=== PATIENT | female | born 1995 | race Caucasian/White ===

== ENCOUNTER 2016-06-05 18:01 | Emergency (ER) | payer MEDICAID, OTHER ==
[2016-06-05] MEDS ORDERED: oxyCODONE/Acetamin 5/325 MG* TAB PO ONE (20:58)
--- NOTE | 2016-06-05 21:04 | ED ---
Breast Complaint - HPI Summary HPI Summary: 21 F presents with bilateral breast pain for the past month. She states that she has had this pain before when she had cyst in her breast when she was younger that were removed by dr olsen. She states she moved out of the area and did not follow up with dr olsen as she was suppose to as they left some of the cyst in. She states that she has not breast feed in 8 months. She denies any nipple discharge, fever, or spreading erythema. She states the pain occurs around areas that she feels masses in her breast. The pain does not change based on her menstrual period. She has an appointment with dr olsen on Friday but they stated to come her because she was in so much pain. She has taken Tylenol for her pain which she says is not helping. She has been seen by her primary for this and they referred her to dr olsen. She states she is not . - Allergy/Home Medications Allergies/Adverse Reactions: Allergies Allergy/AdvReac Type Severity Reaction Status Date / Time Latex Allergy Severe Hives Verified 06/05/16 18:21 COCONUT Allergy Severe THROAT Uncoded 06/05/16 18:21 CLOSES RAT FECES Allergy Severe Anaphylatic Uncoded 06/05/16 18:21 Shock, HIVES BEE STINGS Allergy Unknown Unknown Uncoded 06/05/16 18:21 Reaction Details PMH/Surg Hx/FS Hx/Imm Hx Endocrine/Hematology History: Denies: Hx Diabetes, Hx Thyroid Disease Cardiovascular History: Denies: Hx Hypertension Respiratory History: Denies: Hx Asthma, Hx Chronic Obstructive Pulmonary Disease (COPD) GI History: Denies: Hx Ulcer History: Denies: Hx Renal Disease Musculoskeletal History: Reports: Other Musculoskeletal History - 12 DEGREES- SCOLIOSIS Sensory History: Denies: Hx Contacts or Glasses, Hx Hearing Aid Opthamlomology History: Denies: Hx Contacts or Glasses Psychiatric History: Reports: Hx Anxiety - ON MED, Hx Depression - ON MED Denies: Hx Eating Disorder - Surgical History Surgery Procedure, Year, and Place: Bilateral " breast lumps" removed by Dr. Olsen Hx Anesthesia Reactions: No Infectious Disease History: No Infectious Disease History: Denies: Hx Hepatitis, Hx Human Immunodeficiency Virus (HIV), Traveled Outside the [place] in Last 30 Days - Family History Known Family History: Positive: Hypertension - Social History Alcohol Use: None Substance Use Type: Reports: None Smoking Status (MU): Never Smoked Tobacco Review of Systems Negative: Fever Positive: Other - breast pain. Negative: Chest Pain Negative: Shortness Of Breath Negative: Rash All Other Systems Reviewed And Are Negative: Yes Physical Exam Triage Information Reviewed: Yes Vital Signs On Initial Exam: Initial Vitals Temp Pulse Resp BP Pulse Ox 97.8 F 87 16 146/88 99 06/05/16 18:13 06/05/16 18:13 06/05/16 18:13 06/05/16 18:13 06/05/16 18:13 Vital Signs Reviewed: Yes Skin: Positive: Warm, Dry, Other - no rash noted, masses noted of left breast at 4 and 7 position, on right breast 5 and 8 position, these area conside with were is tender, no abscess appreciated, no nipple discharge. Negative: Erythema @ Head/Face: Positive: Normal Head/Face Inspection Eyes: Positive: Normal, Conjunctiva Clear ENT: Positive: Normal ENT inspection, Pharynx normal, TMs normal Respiratory/Lung Sounds: Positive: Clear to Auscultation, Breath Sounds Present Cardiovascular: Positive: Normal, RRR Diagnostics - Vital Signs Vital Signs Temp Pulse Resp BP Pulse Ox 06/05/16 18:13 97.8 F 87 16 146/88 99 - Laboratory Lab Statement: Any lab studies that have been ordered have been reviewed, and results considered in the medical decision making process. Breast Pain Course/Dx - Course Course Of Treatment: 21 F presents with breast pain for a month, has appt with dr olsen on friday but pain is not being controlled with tyenlol, no fever, is not currently breast feeding or and no nipple discharge, on exam no area of abscess or cellulitis noted, has multiple masses which feel like cysts in both breast, tenderness coresponds with cyst location, discussed could be fibrocystic disease but as already as appointment with dr olsen in two days can follow up with her for definite answer as do not see any signs of infection , will treat pain, patient agrees with plan - Differential Diagnoses Differential Diagnosis/HQI/PQRI: Breast Abscess, Breast Mass, Fibrocystic Breast Disease, Mastitis - Diagnoses Provider Diagnoses: Breast pain Discharge - Discharge Plan Condition: Good Disposition: HOME Patient Education Materials: Breast Mass (ED) Referrals: Elias Payan NP [Primary Care Provider] - Briseida Olsen MD [Medical Doctor] - Additional Instructions: Keep appointment with dr Olsen Take ibuprofen for pain and use narcotic as needed for break through pain Return to ED if develop fever, spreading redness, or any new or worsening symptoms
[2016-06-05 21:22] VITALS: BP 136/81
== END 2016-06-05 21:21 | disposition home or self-care (01) ==
LOC: ED 18:01
DX: N64.4 Mastodynia (principal)
CPT/HCPCS: 99281; A9270-GY

== ENCOUNTER 2016-08-31 16:54 | Emergency (ER) | payer OTHER ==
--- NOTE | 2016-08-31 18:21 | ED ---
Influenza-Like Illness - HPI Summary HPI Summary: Patient presents with a sore throat for three days and a tick on her right rivera. She denies fever, chills, cough, MAN, or congestion. She has a mild cough. The tick has been in place for 2 hours after walking in the [place]. - History of Current Complaint Chief Complaint: EDAnimalBite Time Seen by Provider: 08/31/16 17:30 Hx Obtained From: Patient Onset/Duration: Gradual Onset Severity: Mild Associated Signs & Symptoms: Sore Throat Related Hx: Possible Flu/Infectious Exposure - Allergy/Home Medications Allergies/Adverse Reactions: Allergies Allergy/AdvReac Type Severity Reaction Status Date / Time Latex Allergy Severe Hives Verified 06/05/16 18:21 COCONUT Allergy Severe THROAT Uncoded 06/05/16 18:21 CLOSES RAT FECES Allergy Severe Anaphylatic Uncoded 06/05/16 18:21 Shock, HIVES BEE STINGS Allergy Unknown Unknown Uncoded 06/05/16 18:21 Reaction Details PMH/Surg Hx/FS Hx/Imm Hx Previously Healthy: Yes Endocrine/Hematology History: Denies: Hx Diabetes, Hx Thyroid Disease Cardiovascular History: Denies: Hx Hypertension Respiratory History: Denies: Hx Asthma, Hx Chronic Obstructive Pulmonary Disease (COPD) GI History: Denies: Hx Ulcer History: Denies: Hx Renal Disease Musculoskeletal History: Reports: Other Musculoskeletal History - 12 DEGREES- SCOLIOSIS Sensory History: Denies: Hx Contacts or Glasses, Hx Hearing Aid Opthamlomology History: Denies: Hx Contacts or Glasses Psychiatric History: Reports: Hx Anxiety - ON MED, Hx Depression - ON MED Denies: Hx Eating Disorder - Surgical History Surgery Procedure, Year, and Place: Bilateral " breast lumps" removed by Dr. Baum Hx Anesthesia Reactions: No Infectious Disease History: No Infectious Disease History: Denies: Hx Hepatitis, Hx Human Immunodeficiency Virus (HIV), Traveled Outside the [place] in Last 30 Days - Family History Known Family History: Positive: Hypertension - Social History Occupation: Employed Full-time Lives: With Family Alcohol Use: None Substance Use Type: Reports: None Smoking Status (MU): Never Smoked Tobacco Review of Systems Positive: Sore Throat Positive: Other - imbedded tick on right anterior rivera All Other Systems Reviewed And Are Negative: Yes Physical Exam Triage Information Reviewed: Yes Vital Signs On Initial Exam: Initial Vitals Temp Pulse Resp BP Pulse Ox 98.0 F 101 16 154/73 100 08/31/16 16:59 08/31/16 16:59 08/31/16 16:59 08/31/16 16:59 08/31/16 16:59 Vital Signs Reviewed: Yes Appearance: Positive: Well-Appearing, No Pain Distress, Obese Skin: Positive: Warm, Skin Color Reflects Adequate Perfusion, Dry, Soft Head/Face: Positive: Normal Head/Face Inspection Eyes: Positive: EOMI, CAESAR, Conjunctiva Clear ENT: Positive: Hearing grossly normal, Pharyngeal erythema, Nasal congestion - mild, TMs normal. Negative: Tonsillar swelling, Tonsillar exudate Neck: Positive: Supple, Nontender, No Lymphadenopathy Respiratory/Lung Sounds: Positive: Breath Sounds Present Cardiovascular: Positive: RRR Musculoskeletal: Negative: Edema Left, Edema Right Neurological: Positive: Sensory/Motor Intact, Alert, Oriented to Person Place, Time, NV Bundle Intact Distally, Normal Gait Psychiatric: Positive: Affect/Mood Appropriate AVPU Assessment: Alert Procedures - Procedure Summary Procedure Summary: The body of the tick was grasped with forceps and twisted until it released it' hold. The tick was intact and no parts appeared to be left in the skin. Diagnostics - Vital Signs Vital Signs Temp Pulse Resp BP Pulse Ox 08/31/16 16:59 98.0 F 101 16 154/73 100 - Laboratory Lab Statement: Any lab studies that have been ordered have been reviewed, and results considered in the medical decision making process. Flu Symptom Course/Dx - Diagnoses Differential Diagnosis/HQI/PQRI: Positive: Bronchitis, Influenza, Upper Respiratory Infection Provider Diagnoses: Tick bite, Viral illness Discharge - Discharge Plan Condition: Stable Disposition: HOME Patient Education Materials: Tick Bite (ED), Viral Syndrome (ED) Referrals: Gigi White MD [Primary Care Provider] - Additional Instructions: Please follow-up with your primary care provider if symptoms persist. Return to the emergency department if symptoms worsen.
[2016-08-31 18:32] VITALS: BP 116/70
== END 2016-08-31 18:31 | disposition home or self-care (01) ==
LOC: ED 16:54
DX: S80.861A Insect bite (nonvenomous), right lower leg, initial encounter (principal); J02.9 Acute pharyngitis, unspecified; W57.XXXA Bitten or stung by nonvenomous insect and other nonvenomous arthropods, initial encounter; Y93.9 Activity, unspecified; Y92.9 Unspecified place or not applicable; Y99.9 Unspecified external cause status
CPT/HCPCS: 87651; 99282

== ENCOUNTER → 2016-12-24 14:09 | Emergency (ER) | payer OTHER ==
--- NOTE | 2016-12-24 15:26 | RAD ---
INDICATION: Left pelvic pain . The patient is not sure if she is . COMPARISON: None TECHNIQUE: Longitudinal and transverse transvaginal scans of the pelvis were obtained. FINDINGS: Uterus: The uterus is normal in size. There are no focal masses. The uterus measures 8.3 x 4.4 x 5.4 cm. Endometrial thickness: The endometrial thickness is measured at 0.6 cm. There is a tiny, empty cystic structure in the mid uterus measuring 0.5 cm. Free fluid: There is no significant free fluid . Ovaries: The ovaries are normal in size. The right ovary measures 4.2 x 3.2 x 3.0 cm. The left ovary measures 4.2 x 2.5 x 3.5 cm. There are multiple tiny peripheral cysts in each ovary which could reflect a cystic ovarian syndrome in the appropriate clinical setting. . Doppler interrogation demonstrates flow to each ovary. Other: None IMPRESSION: TINY CYSTIC ENTITY WITHIN THE UTERUS COULD REPRESENT AN EARLY GESTATIONAL SAC. THIS EXAMINATION WAS PERFORMED AND INTERPRETED WITHOUT THE BENEFIT OF A BETA-HCG VALUE AND THEREFORE THE SIGNIFICANCE OF THIS FINDING IS UNCERTAIN. SUGGEST CORRELATION WITH THE BETA-HCG. SUGGEST FOLLOW-UP ULTRASONOGRAPHY CLINICALLY INDICATED.
[2016-12-24 15:47] LABS: Hematocrit 43 % (35-47); Hemoglobin 14.5 g/dl (12.0-16.0); Mean Corpuscular HGB Conc 34 g/dl (31-36); Mean Corpuscular Hemoglobin 31 pg (27-31); Mean Corpuscular Volume 92 fL (80-97); Mean Platelet Volume 9 um3 (7.4-10.4); Red Blood Count 4.72 10^6/ul (4.0-5.4); Red Cell Distribution Width 14 % (10.5-15); White Blood Count 8.1 10^3/ul (3.5-10.8)
[2016-12-24 16:03] LABS: ALT 26 U/L (7-52); AST 20 U/L (13-39); Albumin 4.2 g/dL (3.2-5.2); Alkaline Phosphatase 51 U/L (34-104); Anion Gap 4 mmol/L (2-11); BUN/Creatinine Ratio 18.8 (8-20); Blood Urea Nitrogen 13 mg/dL (6-24); C Reactive Protein 6.75 mg/L (< 5.00); CO2 Carbon Dioxide 29 mmol/L (22-32); Calcium 9.3 mg/dL (8.6-10.3); Chloride 104 mmol/L (101-111); EGFR African American 136.8 (>60); EGFR Non-African American 106.4 (>60); Globulin 3.2 g/dL (2-4); Glucose 81 mg/dL (70-100); Lipase 26 U/L (11.0-82.0); Potassium 3.7 mmol/L (3.5-5.0); Sodium 137 mmol/L (133-145); Total Protein 7.4 g/dL (6.4-8.9)
[2016-12-24 17:17] LABS: Urine Bilirubin Negative (Negative); Urine Glucose Negative (Negative); Urine Nitrite Negative (Negative)
[2016-12-24 19:35] VITALS: BP 120/68
--- NOTE | 2016-12-25 09:01 | ED ---
Kacey Stevenson Alfonso, scribed for Gigi Schneider MD on 12/24/16 at 1520 . Abdominal Pain/Female - HPI Summary HPI Summary: This patient is a 21 year old F presenting to [facility] with a chief complaint of LLQ abdominal pain since one week ago. The CC is described as a tearing. The patient rates the pain 5/10 in severity. Symptoms aggravated by standing and alleviated by lying down. Patient reports nausea. Patient denies vomiting, diarrhea, and constipation. She is sexually active. She has been before. LNMP two months ago. She reports marijuana use. Denies any PMHx. - History of Current Complaint Chief Complaint: EDAbdPain Stated Complaint: LT SIDE ABD PAIN Time Seen by Provider: 12/24/16 14:17 Hx Obtained From: Patient Onset/Duration: Sudden Onset, Lasting Weeks - 1, Still Present Timing: Constant Severity Initially: Moderate Severity Currently: Moderate Pain Intensity: 5 Pain Scale Used: 0-10 Numeric Location: Discrete At: LLQ Character: Tearing Aggravating Factor(s): Other: - Standing Alleviating Factor(s): Other: - Lying down Associated Signs and Symptoms: Positive: Other: - Patient reports nausea. Patient denies vomiting, diarrhea, and constipation. Allergies/Adverse Reactions: Allergies Allergy/AdvReac Type Severity Reaction Status Date / Time Latex Allergy Severe Hives Verified 06/05/16 18:21 COCONUT Allergy Severe THROAT Uncoded 06/05/16 18:21 CLOSES RAT FECES Allergy Severe Anaphylatic Uncoded 06/05/16 18:21 Shock, HIVES BEE STINGS Allergy Unknown Unknown Uncoded 06/05/16 18:21 Reaction Details PMH/Surg Hx/FS Hx/Imm Hx Endocrine/Hematology History: Denies: Hx Diabetes, Hx Thyroid Disease Cardiovascular History: Denies: Hx Hypertension Respiratory History: Denies: Hx Asthma, Hx Chronic Obstructive Pulmonary Disease (COPD) GI History: Denies: Hx Ulcer History: Denies: Hx Renal Disease Musculoskeletal History: Reports: Other Musculoskeletal History - 12 DEGREES- SCOLIOSIS Sensory History: Denies: Hx Contacts or Glasses, Hx Hearing Aid Opthamlomology History: Denies: Hx Contacts or Glasses Psychiatric History: Reports: Hx Anxiety - ON MED, Hx Depression - ON MED Denies: Hx Eating Disorder - Surgical History Surgery Procedure, Year, and Place: Bilateral " breast lumps" removed by Dr. Bautista Harding Anesthesia Reactions: No Infectious Disease History: Denies: Hx Hepatitis, Hx Human Immunodeficiency Virus (HIV), Traveled Outside the [place] in Last 30 Days - Family History Known Family History: Positive: Hypertension - Social History Alcohol Use: None Substance Use Type: Reports: None Smoking Status (MU): Never Smoked Tobacco Review of Systems Negative: Fever Positive: Abdominal Pain - LLQ, Nausea, Other - Negative constipation. Negative : Vomiting, Diarrhea All Other Systems Reviewed And Are Negative: Yes Physical Exam - Summary Physical Exam Summary: VITAL SIGNS: Reviewed. GENERAL: Patient is a well-developed and nourished female who is lying comfortable in the stretcher. Patient is not in any acute respiratory distress. HEAD AND FACE: Normocephalic and atraumatic. EYES: PERRLA, EOMI x 2, No injected conjunctiva. EARS: Hearing grossly intact. Ear canals and tympanic membranes are WNL. MOUTH: Oropharynx within normal limits. NECK: Supple, trachea is midline, no adenopathy, no JVD. CHEST: Symmetric, no tenderness at palpation LUNGS: Clear to auscultation bilaterally. No wheezing or crackles. CVS: RRR, S1 and S2 present, no murmurs or gallops appreciated. ABDOMEN: Left pelvic tenderness. Soft. No signs of distention. Positive bowel sounds. No rebound no guarding, and no masses palpated. No abdominal bruit or pulsations. EXTREMITIES: FROM in all major joints, no edema, no cyanosis or clubbing. NEURO: Alert and oriented x 3. No acute neurological deficits. Speech is normal. SKIN: Dry and warm Triage Information Reviewed: Yes Vital Signs On Initial Exam: Initial Vitals Temp Pulse Resp BP Pulse Ox 97.6 F 84 18 147/82 98 12/24/16 14:12 12/24/16 14:12 12/24/16 14:12 12/24/16 14:12 12/24/16 14:12 Vital Signs Reviewed: Yes Diagnostics - Vital Signs Vital Signs Temp Pulse Resp BP Pulse Ox 12/24/16 14:12 97.6 F 84 18 147/82 98 - Laboratory Lab Results: Lab Results 12/24/16 12/24/16 12/24/16 Range/Units 15:40 15:40 17:05 WBC 8.1 (3.5-10.8) 10^3/ul RBC 4.72 (4.0-5.4) 10^6/ul Hgb 14.5 (12.0-16.0) g/dl Hct 43 (35-47) % MCV 92 (80-97) fL MCH 31 (27-31) pg MCHC 34 (31-36) g/dl RDW 14 (10.5-15) % Plt Count 234 (150-450) 10^3/ul MPV 9 (7.4-10.4) um3 Neut % (Auto) 50.0 (38-83) % Lymph % (Auto) 36.1 (25-47) % [place] % (Auto) 10.6 H (1-9) % Eos % (Auto) 2.3 (0-6) % Baso % (Auto) 1.0 (0-2) % Absolute Neuts (auto) 4.0 (1.5-7.7) 10^3/ul Absolute Lymphs (auto) 2.9 (1.0-4.8) 10^3/ul Absolute Monos (auto) 0.9 H (0-0.8) 10^3/ul Absolute Eos (auto) 0.2 (0-0.6) 10^3/ul Absolute Basos (auto) 0.1 (0-0.2) 10^3/ul Absolute Nucleated RBC 0 10^3/ul Nucleated RBC % 0 Sodium 137 (133-145) mmol/L Potassium 3.7 (3.5-5.0) mmol/L Chloride 104 (101-111) mmol/L Carbon Dioxide 29 (22-32) mmol/L Anion Gap 4 (2-11) mmol/L BUN 13 (6-24) mg/dL Creatinine 0.69 (0.51-0.95) mg/dL Est GFR ( Amer) 136.8 (>60) Est GFR (Non-Af Amer) 106.4 (>60) BUN/Creatinine Ratio 18.8 (8-20) Glucose 81 (70-100) mg/dL Calcium 9.3 (8.6-10.3) mg/dL Total Bilirubin 0.30 (0.2-1.0) mg/dL AST 20 (13-39) U/L ALT 26 (7-52) U/L Alkaline Phosphatase 51 (34-104) U/L C-Reactive Protein 6.75 H (< 5.00) mg/L Total Protein 7.4 (6.4-8.9) g/dL Albumin 4.2 (3.2-5.2) g/dL Globulin 3.2 (2-4) g/dL Albumin/Globulin Ratio 1.3 (1-3) Lipase 26 (11.0-82.0) U/L Beta HCG, Quant < 0.60 mIU/mL Urine Color Yellow Urine Appearance Cloudy Urine pH 7.0 (5-9) Ur Specific [place] 1.021 (1.010-1.030) Urine Protein Negative (Negative) Urine Ketones Negative (Negative) Urine Blood Negative (Negative) Urine Nitrate Negative (Negative) Urine Bilirubin Negative (Negative) Urine Urobilinogen Negative (Negative) Ur Leukocyte Esterase Negative (Negative) Urine Glucose Negative (Negative) Result Diagrams: 12/24/16 15:40 12/24/16 15:40 Lab Statement: Any lab studies that have been ordered have been reviewed, and results considered in the medical decision making process. - Additional Comments Diagnostic Additional Comments: US transvaginal reveals, per radiologist, TINY CYSTIC ENTITY WITHIN THE UTERUS COULD REPRESENT AN EARLY GESTATIONAL SAC. THIS EXAMINATION WAS PERFORMED AND INTERPRETED WITHOUT THE BENEFIT OF A BETA-HCG VALUE AND THEREFORE THE SIGNIFICANCE OF THIS FINDING IS UNCERTAIN. SUGGEST CORRELATION WITH THE BETA- HCG. SUGGEST FOLLOW-UP ULTRASONOGRAPHY CLINICALLY INDICATED. Abdominal Pain Fem Course/Dx - Course Course Of Treatment: This patient is a 21 year old F presenting to [facility] with a chief complaint of LLQ abdominal pain since one week ago. The CC is described as a tearing. The patient rates the pain 5/10 in severity. Symptoms aggravated by standing and alleviated by lying down. Patient reports nausea. Patient denies vomiting, diarrhea, and constipation. She is sexually active. She has been before. LNMP two months ago. She reports marijuana use. Denies any PMHx. Test results without any significant abnormalities. Urinalysis negative for UTI. US transvaginal reveals TINY CYSTIC ENTITY WITHIN THE UTERUS COULD REPRESENT AN EARLY GESTATIONAL SAC. THIS EXAMINATION WAS PERFORMED AND INTERPRETED WITHOUT THE BENEFIT OF A BETA-HCG VALUE AND THEREFORE THE SIGNIFICANCE OF THIS FINDING IS UNCERTAIN. SUGGEST CORRELATION WITH THE BETA -HCG. SUGGEST FOLLOW-UP ULTRASONOGRAPHY CLINICALLY INDICATED. Beta-HCG is negative; therefore the patient Is not . The symptoms have resolved in the ED course. The patient is asymptomatic. Therefore, the patient will be discharged home with PCP follow up. Patient is hemodynamically stable and alert and oriented to person, place, and time. I discussed all the findings and test results with the patient. Patient was instructed to return to the emergency room immediately if any of the symptoms return or worsens. They were explained the possibility of an early abdominal pathology which was not detected at this time despite the physical exam and testing. They understand and agree. Abdominal exam before discharge: Soft, NT. No signs of distention. BS present. No rebound no guarding, and no masses palpated. Patient is alert and oriented and hemodynamically stable. Patient is to follow up with primary care physician in the next 2 to 3 days. Patient agree and understands. - Diagnoses Differential Diagnosis: Positive: Constipation, Ovarian Cyst, Provider Diagnoses: Abdominal pain Discharge - Discharge Plan Condition: Stable Disposition: HOME Patient Education Materials: Abdominal Pain (ED) Referrals: Gigi White MD [Primary Care Provider] - 3 Days The documentation as recorded by the Kacey vergara Alfonso accurately reflects the service I personally performed and the decisions made by , Gigi Schneider MD.
== END | disposition home or self-care (01) ==
LOC: ED 14:09
DX: R10.32 Left lower quadrant pain (principal); R11.0 Nausea
CPT/HCPCS: 36415; 76830; 80053; 81003; 83690; 84702; 85025; 86140; 99283

== ENCOUNTER 2017-01-22 08:24 | Emergency (ER) | payer OTHER ==
[2017-01-22 08:43] VITALS: BP 147/81
--- NOTE | 2017-01-22 09:42 | UC ---
Respiratory Complaint HPI - HPI Summary HPI Summary: 21 yo female with cough and fever x 5 days occasionally productive right sided thoracic back pain with deep inspiration no n/v/d yesterday was bent over and felt faint may have passed out for a second did not hit ground - History of Current Complaint Chief Complaint: UCRespiratory Stated Complaint: RESP ISSUE Time Seen by Provider: 01/22/17 09:12 Hx Obtained From: Patient Hx Last Menstrual Period: 2 months ago Onset/Duration: Gradual Onset, Lasting Days Timing: Constant Severity Initially: Mild Severity Currently: Moderate Pain Intensity: 4 - 8 with deep breath Pain Scale Used: 0-10 Numeric Character: Cough: Productive Aggravating Factors: Nothing Alleviating Factors: Nothing Associated Signs And Symptoms: Positive: Fever - Allergies/Home Medications Allergies/Adverse Reactions: Allergies Allergy/AdvReac Type Severity Reaction Status Date / Time Latex Allergy Severe Hives Verified 06/05/16 18:21 COCONUT Allergy Severe THROAT Uncoded 06/05/16 18:21 CLOSES RAT FECES Allergy Severe Anaphylatic Uncoded 06/05/16 18:21 Shock, HIVES BEE STINGS Allergy Unknown Unknown Uncoded 06/05/16 18:21 Reaction Details Home Medications: Home Medications Loratadine [Claritin 10 MG CAP] 10 mg PO DAILY 01/22/17 [History Confirmed 01/22] PMH/Surg Hx/FS Hx/Imm Hx Previously Healthy: Yes - Surgical History Surgical History: Yes Surgery Procedure, Year, and Place: Bilateral " breast lumps" removed by Dr. Baum - Family History Known Family History: Positive: Hypertension - Social History Alcohol Use: None Substance Use Type: None Smoking Status (MU): Never Smoked Tobacco - Immunization History Most Recent Influenza Vaccination: 03/21/2015 Most Recent Tetanus Shot: 05/09/2015 Most Recent Pneumonia Vaccination: none Review of Systems Constitutional: Fever, Chills, Fatigue Skin: Negative Eyes: Negative ENT: Negative Respiratory: Cough Cardiovascular: Negative Gastrointestinal: Negative Genitourinary: Negative Motor: Negative Neurovascular: Negative Musculoskeletal: Negative Neurological: Negative Psychological: Negative All Other Systems Reviewed And Are Negative: Yes Physical Exam Triage Information Reviewed: Yes Appearance: Well-Appearing, No Pain Distress, Well-Nourished Vital Signs: Initial Vital Signs Temp 97.5 F 01/22/17 08:38 Pulse 94 01/22/17 08:38 Resp 18 01/22/17 08:38 BP 147/81 01/22/17 08:38 Pulse Ox 99 01/22/17 08:38 Vital Signs Reviewed: Yes Eyes: Positive: Conjunctiva Clear ENT: Positive: TMs normal. Negative: Hearing grossly normal, Pharyngeal erythema, Nasal congestion, Nasal drainage, Tonsillar swelling, Tonsillar exudate, Trismus, Muffled/hoarse voice Neck: Positive: Supple, Nontender, No Lymphadenopathy Respiratory: Positive: No respiratory distress, No accessory muscle use, Crackles - right base, Wheezing - R>L with forced expiration Cardiovascular: Positive: RRR, No Murmur Musculoskeletal: Positive: ROM Intact, No Edema Neurological Exam: Normal Psychological Exam: Normal Skin Exam: Normal UC Diagnostic Evaluation - Laboratory O2 Sat by Pulse Oximetry: 99 - normal/not hypoxic - Radiology Xray Interpretation: No Acute Changes Radiology Interpretation Completed By: Radiologist Respiratory Course/Dx - Differential Dx/Diagnosis Provider Diagnoses: acute bronchitis with bronchospasm Discharge - Discharge Plan Condition: Stable Disposition: HOME Prescriptions: Amoxicillin PO (*) [Amoxicillin 400 MG/5 ML SUSP*] 800 mg PO BID #200 bottle predniSONE TAB* [Deltasone TAB*] 50 mg PO DAILY #5 tab Patient Education Materials: Acute Bronchitis (ED) Forms: *Work Release Referrals: Gigi White MD [Primary Care Provider] - 6 Days (if not completely better) Additional Instructions: use inhaler as directed rest fluids recheck for worsening symptoms
--- NOTE | 2017-01-22 09:58 | RAD ---
Indication: Fever, chills and cough. 2 views of the chest including dual energy PA views demonstrate no mediastinal shift. Heart is of normal size and configuration. Lung coles demonstrate no pleural fluid, pneumonia or pneumothorax. IMPRESSION: No active cardiopulmonary disease is noted.
[2017-01-22] MEDS ORDERED: Albuterol HFA INHALER* 8 gm MDI INH ONE (10:06)
--- NOTE | 2017-01-23 11:21 | UC ---
Progress - Progress Note Progress Note: Patient may return to work not today but can go back tomorrow, January 23, 2017. Chay Enrique MD
== END 2017-01-22 10:37 | disposition home or self-care (01) ==
LOC: UCEAST 08:24
DX: J20.9 Acute bronchitis, unspecified (principal)
CPT/HCPCS: 71020; 99212; A9270-GY; G0463

== ENCOUNTER 2017-01-26 15:18 | Emergency (ER) | payer OTHER ==
[2017-01-26 15:27] VITALS: BP 140/84
--- NOTE | 2017-01-26 17:10 | UC ---
Respiratory Complaint HPI - HPI Summary HPI Summary: SEEN HERE 01/22/17 AND DX WITH ACUTE BRONCHITIS. TX WITH AMOX, PREDNISONE AND GIVEN SAMPLE SIZED ALBUTEROL INHALER. STATES SHE IS NOT FEELING IMPROVED. LAST DOSE OF STEROIDS WAS TODAY AND INHALER IS USED UP. NO FEVER. C/O PERSISTEJT COUGH, ST AND CONGESTION. NO WHEEZE OR FEVER. - History of Current Complaint Chief Complaint: UCRespiratory Stated Complaint: COUGH,COLD Time Seen by Provider: 01/26/17 16:28 Hx Obtained From: Patient Hx Last Menstrual Period: 11/02 Onset/Duration: Gradual Onset, Lasting Days, Still Present Timing: Constant Severity Initially: Moderate Severity Currently: Moderate Pain Intensity: 8 Pain Scale Used: 0-10 Numeric Character: Cough: Nonproductive Aggravating Factors: Nothing Alleviating Factors: Bronchodilator Associated Signs And Symptoms: Positive: URI, Nasal Congestion. Negative: Dyspnea, Fever, Chills, Wheezing, Hemoptysis, Dizziness, Hoarseness - Allergies/Home Medications Allergies/Adverse Reactions: Allergies Allergy/AdvReac Type Severity Reaction Status Date / Time Latex Allergy Severe Hives Verified 06/05/16 18:21 COCONUT Allergy Severe THROAT Uncoded 06/05/16 18:21 CLOSES RAT FECES Allergy Severe Anaphylatic Uncoded 06/05/16 18:21 Shock, HIVES BEE STINGS Allergy Unknown Unknown Uncoded 06/05/16 18:21 Reaction Details Home Medications: Home Medications Albuterol HFA INHALER* [Ventolin HFA Inhaler*] 2 puff INH Q2H PRN 01/26/17 [ History Confirmed 01/26/17] PMH/Surg Hx/FS Hx/Imm Hx Previously Healthy: Yes - Surgical History Surgical History: Yes Surgery Procedure, Year, and Place: Bilateral " breast lumps" removed by Dr. Baum - Family History Known Family History: Positive: Hypertension - Social History Alcohol Use: None Substance Use Type: None Smoking Status (MU): Never Smoked Tobacco - Immunization History Most Recent Influenza Vaccination: 03/21/2015 Most Recent Tetanus Shot: 05/09/2015 Most Recent Pneumonia Vaccination: none Review of Systems Constitutional: Negative ENT: Sore Throat, Nasal Discharge Respiratory: Cough Cardiovascular: Negative Gastrointestinal: Negative All Other Systems Reviewed And Are Negative: Yes Physical Exam Triage Information Reviewed: Yes Appearance: Well-Appearing, No Pain Distress, Well-Nourished Vital Signs: Initial Vital Signs Temp 98.1 F 01/26/17 15:23 Pulse 102 01/26/17 15:23 Resp 18 01/26/17 15:23 BP 140/84 01/26/17 15:23 Pulse Ox 99 01/26/17 15:23 Vital Signs Reviewed: Yes Eyes: Positive: Conjunctiva Clear ENT: Positive: Hearing grossly normal, Pharynx normal, TMs normal Neck: Positive: Supple, Nontender, No Lymphadenopathy Respiratory Exam: Normal Cardiovascular Exam: Normal Abdomen Description: Positive: Soft Musculoskeletal: Positive: No Edema Neurological: Positive: Alert Psychological: Positive: Age Appropriate Behavior Skin: Negative: rashes UC Diagnostic Evaluation - Laboratory O2 Sat by Pulse Oximetry: 99 Diagnostic Studies Comment: RAPID STREP NEGATIVE Respiratory Course/Dx - Differential Dx/Diagnosis Provider Diagnoses: ACUTE BRONCHITIS Discharge - Discharge Plan Condition: Stable Disposition: HOME Prescriptions: Albuterol HFA INHALER* [Ventolin HFA Inhaler*] 2 puff INH Q4H PRN #1 mdi PRN Reason: Shortness Of Breath Patient Education Materials: Acute Bronchitis (ED) Referrals: Gigi White MD [Primary Care Provider] - If Needed Additional Instructions: RAPID STREP NEGATIVE. CONTINUE YOUR AMOXICILLIN TO COMPLETE COURSE. REST, HYDRATE, OTC MEDS NEEDED. YOU SHOULD IMPROVE OVER THE NEXT 1-2 WEEKS. FOLLOW- UP PCP IF NOT IMPROVING EXPECTED.
== END 2017-01-26 17:10 | disposition home or self-care (01) ==
LOC: UCEAST 15:18
DX: J20.9 Acute bronchitis, unspecified (principal)
CPT/HCPCS: 87651; 99212; G0463

== ENCOUNTER 2017-02-16 10:30 | Emergency (ER) | payer OTHER ==
[2017-02-16 10:46] VITALS: BP 121/84
== END 2017-02-16 12:30 | disposition left against medical advice (07) ==
LOC: ED 10:30
DX: N61.1 Abscess of the breast and nipple (principal); Z53.21 Procedure and treatment not carried out due to patient leaving prior to being seen by health care provider
CPT/HCPCS: 99282

== ENCOUNTER 2017-04-28 13:10 | Emergency (ER) | payer OTHER ==
[2017-04-28] MEDS ORDERED: NS 0.9% 1000 ML* 1,000 ML IV ONE (15:46)
[2017-04-28 16:21] LABS: Hematocrit 40 % (35-47); Hemoglobin 13.6 g/dl (12.0-16.0); Mean Corpuscular HGB Conc 34 g/dl (31-36); Mean Corpuscular Hemoglobin 31 pg (27-31); Mean Corpuscular Volume 91 fL (80-97); Mean Platelet Volume 10 um3 (7.4-10.4); Red Cell Distribution Width 14 % (10.5-15); White Blood Count 8.3 10^3/ul (3.5-10.8)
[2017-04-28 16:40] LABS: Urine Bacteria Absent (Absent); Urine Bilirubin Negative (Negative); Urine Glucose Negative (Negative); Urine Nitrite Negative (Negative)
[2017-04-28 16:42] LABS: BUN/Creatinine Ratio 12.3 (8-20); C Reactive Protein 12.05 mg/L (< 5.00); Calcium 9.2 mg/dL (8.6-10.3); EGFR African American 127.1 (>60); EGFR Non-African American 98.8 (>60); Potassium 3.5 mmol/L (3.5-5.0); Total Bilirubin 0.2 mg/dL (0.2-1.0)
--- NOTE | 2017-04-28 18:02 | RAD ---
HISTORY: Cramping, spotting COMPARISONS: The relevant TECHNIQUE: Multiple transverse and longitudinal ultrasound images were obtained of the pelvis using grayscale, color Doppler, spectral Doppler imaging and M-Mode Doppler imaging using the endovaginal transducer. FINDINGS: UTERUS: The uterus is normal in shape, size, contour, and echotexture. GESTATION: There is a single live intrauterine gestation. The crown-rump length measures 1.5 cm for a gestational age of 7 weeks, 6 days. The ART is December 09, 2017. cardiac motion is detected at a rate of 155 beats per minute. Gross movement is identified. anatomy cannot be assessed secondary to early dates. The amniotic fluid is qualitatively normal. There are no retroplacental fluid collections. CUL-DE-SAC: There is no free fluid within the cul-de-sac. RIGHT OVARY: The right ovary measures 4.9 x 2.1 x 3.7 cm. Normal arterial and venous waveforms are identifiable within the ovary on spectral Doppler imaging. LEFT OVARY: The left ovary measures 3.6 x 2.6 x 2.8 cm. Normal arterial and venous waveforms are identifiable within the ovary on spectral Doppler imaging. The corpus luteum cyst is noted measuring 2.1 cm. BLADDER: The bladder is not well visualized. IMPRESSION: SINGLE LIVE INTRAUTERINE GESTATION AT 7 WEEKS AND 6 DAYS BY CROWN-RUMP LENGTH. NO RETROPLACENTAL HEMORRHAGE.
[2017-04-28] MEDS ORDERED: Acetaminophen TAB* 325 MG PO ONE (18:10)
[2017-04-28 18:51] VITALS: BP 124/68
--- NOTE | 2017-04-28 21:12 | ED ---
Kacey Stevenson Alfonso, scribed for Jasmyn Brown MD on 04/28/17 at 1644 . - HPI Summary HPI Summary: This patient is a 22 year old F who had home test positive yesterday , presents to [facility] accompanied by male partner with a chief complaint of pink vaginal bleeding with wiping from 1200 to 1245 today. She states the bleeding is different in character from her previous miscarriage. She is A1. The miscarriage was 8 weeks into gestation and was 6 months to 1 year ago. She believes she is approximately 4 weeks currently, and had her first positive test yesterday. She was not in February per US and labs when she was tested. LMP 11/07/16. The patient rates the pain 5/10 in severity currently, and 8/10 at its worse. Bleeding alleviated by spontaneous resolution. Patient reports LLQ abdominal cramping (radiates to left lower back) , and N/V. Pt states she is blood type A+. - History of Current Complaint Chief Complaint: EDOBProblems Stated Complaint: CRAPMING/ Time Seen by Provider: 04/28/17 16:28 Hx Obtained From: Patient Chief Complaint: Concern for Embryonic Dem, Pain, Vaginal Bleeding Onset/Duration: Started Hours Ago, Resolved Timing: Lasting Minutes - 1106-8125 Severity: Moderate Current Severity: Moderate Pain Intensity: 8 - /10 Location of Pain: Diffuse - lower Character: Cramping Aggravating Factors: Nothing Alleviating Factors: Other: - spontaneous resolution Associated Signs and Symptoms: Positive: Nausea, Vaginal Bleeding or Discharge, Vomiting, Other: - LLQ abdominal cramping (radiates to left lower back), and N/ V. - Assessment Hx Now: Yes Hx : 3 Hx Para: 1 SAB: 1 IEA: 0 History of Ectopic : No Vaginal Bleeding Amount: Scant Hx Last Menstrual Period: 11/07/16 Hx Hysterectomy: No - Additional Pertinent History Maternal Blood Type and Rh: A Positive - Allergies/Home Medications Allergies/Adverse Reactions: Allergies Allergy/AdvReac Type Severity Reaction Status Date / Time Latex Allergy Severe Hives Verified 06/05/16 18:21 COCONUT Allergy Severe THROAT Uncoded 06/05/16 18:21 CLOSES RAT FECES Allergy Severe Anaphylatic Uncoded 06/05/16 18:21 Shock, HIVES BEE STINGS Allergy Unknown Unknown Uncoded 06/05/16 18:21 Reaction Details PMH/Surg Hx/FS Hx/Imm Hx Previously Healthy: Yes Endocrine/Hematology History: Denies: Hx Diabetes, Hx Thyroid Disease Cardiovascular History: Denies: Hx Hypertension Respiratory History: Denies: Hx Asthma, Hx Chronic Obstructive Pulmonary Disease (COPD) GI History: Denies: Hx Ulcer History: Denies: Hx Renal Disease Musculoskeletal History: Reports: Other Musculoskeletal History - 12 DEGREES- SCOLIOSIS Sensory History: Denies: Hx Contacts or Glasses, Hx Hearing Aid Opthamlomology History: Denies: Hx Contacts or Glasses EENT History: Denies: Hx Deafness Psychiatric History: Reports: Hx Anxiety - ON MED, Hx Depression - ON MED Denies: Hx Eating Disorder - Surgical History Surgery Procedure, Year, and Place: Bilateral " breast lumps" removed by Dr. Baum Hx Anesthesia Reactions: No Infectious Disease History: No Infectious Disease History: Denies: Hx Hepatitis, Hx Human Immunodeficiency Virus (HIV), History Other Infectious Disease, Traveled Outside the [place] in Last 30 Days - Family History Known Family History: Positive: Hypertension, Other - Breast, throat, and thyroid cancers. - Social History Occupation: Employed Full-time - [employer] Lives: With Family Alcohol Use: None Hx Substance Use: No Substance Use Type: Reports: None Hx Tobacco Use: No Smoking Status (MU): Never Smoked Tobacco Review of Systems Negative: Fever Cardiovascular: Negative Respiratory: Negative Positive: Vomiting, Nausea Positive: other - vaginal bleeding, LLQ abdominal cramping Neurological: Negative Psychological: Normal All Other Systems Reviewed And Are Negative: Yes Physical Exam - Physical Exam Triage Information Reviewed: Yes Vital Signs Reviewed: Yes Appearance: Positive: Well-Appearing, Pain Distress, Obese Skin: Positive: Warm, Skin Color Reflects Adequate Perfusion Head/Face: Positive: Normal Head/Face Inspection Eyes: Positive: EOMI, Conjunctiva Clear ENT: Positive: Normal ENT inspection Neck: Positive: Supple Respiratory/Lung Sounds: Positive: Clear to Auscultation, Breath Sounds Present , Other - No respiratory distress Cardiovascular: Positive: RRR, Pulses are Symmetrical in both Upper and Lower Extremities, Other - Brisk capillary refill. Negative: Murmur Abdomen Description: Positive: Soft, Other: - LLQ and suprapubic tenderness. No rebound.. Negative: Guarding Bowel Sounds: Positive: Present Neurological: Positive: Alert, Oriented to Person Place, Time, Facial Symmetry, Speech Normal, Other - muscle tone normal, facial symmetry, speech normal, sensory/motor intact Psychiatric: Positive: Normal - [place] Coma Scale Eye: 4 - Spontaneous Motor: 6 - Obeys Commands Verbal: 5 - Oriented Coma Scale Total: 15 - Vaginal Assessment Examined By: Jasmyn Brown - no blood in vaginal vault Dilation (cm): 0 Dilation Description: Thick and Closed Cervical Effacement: none Diagnostics - Vital Signs Vital Signs Temp Pulse Resp BP Pulse Ox 04/28/17 13:26 97.9 F 79 18 139/78 98 - Laboratory Lab Results: Lab Results 04/28/17 04/28/17 04/28/17 Range/Units 15:00 15:56 15:56 WBC 8.3 (3.5-10.8) 10^3/ul RBC 4.40 (4.0-5.4) 10^6/ul Hgb 13.6 (12.0-16.0) g/dl Hct 40 (35-47) % MCV 91 (80-97) fL MCH 31 (27-31) pg MCHC 34 (31-36) g/dl RDW 14 (10.5-15) % Plt Count 239 (150-450) 10^3/ul MPV 10 (7.4-10.4) um3 Neut % (Auto) 68.7 (38-83) % Lymph % (Auto) 19.9 L (25-47) % [place] % (Auto) 9.2 H (1-9) % Eos % (Auto) 1.9 (0-6) % Baso % (Auto) 0.3 (0-2) % Absolute Neuts (auto) 5.7 (1.5-7.7) 10^3/ul Absolute Lymphs (auto) 1.7 (1.0-4.8) 10^3/ul Absolute Monos (auto) 0.8 (0-0.8) 10^3/ul Absolute Eos (auto) 0.2 (0-0.6) 10^3/ul Absolute Basos (auto) 0 (0-0.2) 10^3/ul Absolute Nucleated RBC 0.01 10^3/ul Nucleated RBC % 0.1 INR (Anticoag Therapy) 1.01 (0.77-1.02) APTT 27.7 (26.0-36.3) seconds Lactic Acid (0.5-2.0) mmol/L Urine Color Yellow Urine Appearance Cloudy Urine pH 5.0 (5-9) Ur Specific [place] 1.027 (1.010-1.030) Urine Protein Negative (Negative) Urine Ketones Negative (Negative) Urine Blood Negative (Negative) Urine Nitrate Negative (Negative) Urine Bilirubin Negative (Negative) Urine Urobilinogen Negative (Negative) Ur Leukocyte Esterase Trace H (Negative) Urine WBC (Auto) 1+(6-10/hpf) H (Absent) Urine RBC (Auto) Trace(0-2/hpf) (Absent) Ur Squamous Epith Cells Present H (Absent) Calcium Oxalate Crystal Present H (Absent) Urine Bacteria Absent (Absent) Urine Glucose Negative (Negative) Blood Type Antibody Screen 04/28/17 04/28/17 Range/Units 15:56 15:56 WBC (3.5-10.8) 10^3/ul RBC (4.0-5.4) 10^6/ul Hgb (12.0-16.0) g/dl Hct (35-47) % MCV (80-97) fL MCH (27-31) pg MCHC (31-36) g/dl RDW (10.5-15) % Plt Count (150-450) 10^3/ul MPV (7.4-10.4) um3 Neut % (Auto) (38-83) % Lymph % (Auto) (25-47) % Preston % (Auto) (1-9) % Eos % (Auto) (0-6) % Baso % (Auto) (0-2) % Absolute Neuts (auto) (1.5-7.7) 10^3/ul Absolute Lymphs (auto) (1.0-4.8) 10^3/ul Absolute Monos (auto) (0-0.8) 10^3/ul Absolute Eos (auto) (0-0.6) 10^3/ul Absolute Basos (auto) (0-0.2) 10^3/ul Absolute Nucleated RBC 10^3/ul Nucleated RBC % INR (Anticoag Therapy) (0.77-1.02) APTT (26.0-36.3) seconds Lactic Acid 0.6 (0.5-2.0) mmol/L Urine Color Urine Appearance Urine pH (5-9) Ur Specific [place] (1.010-1.030) Urine Protein (Negative) Urine Ketones (Negative) Urine Blood (Negative) Urine Nitrate (Negative) Urine Bilirubin (Negative) Urine Urobilinogen (Negative) Ur Leukocyte Esterase (Negative) Urine WBC (Auto) (Absent) Urine RBC (Auto) (Absent) Ur Squamous Epith Cells (Absent) Calcium Oxalate Crystal (Absent) Urine Bacteria (Absent) Urine Glucose (Negative) Blood Type A Positive Antibody Screen Pending Result Diagrams: 04/28/17 15:56 04/28/17 15:56 Lab Statement: Any lab studies that have been ordered have been reviewed, and results considered in the medical decision making process. - Additional Comments Diagnostic Additional Comments: Transvaginal US reveals, per radiologist, SINGLE LIVE INTRAUTERINE GESTATION AT 7 WEEKS AND 6 DAYS BY CROWN-RUMP LENGTH. NO RETROPLACENTAL HEMORRHAGE. ED physician has reviewed this radiology report. Re-Evaluation - Re-Evaluation First Eval Re-Evaluation Time: 18:45 Change: Improved Comment: Reviewed lab results with the patient. Pain improved with Tylenol. Course/Dx - Course Assessment/Plan: Patients medications reviewed this visit. Patient initially declines pain medication. In the ED course the patient was given IV fluids and Tylenol. Pt had labs and transvaginal US showing single live IUP. HCG is 91, 000. Urine with some cells, sent for culture. Patient will be discharged with follow up from PCP and OBGYN. The patient is agreeable with this plan. - Differential Diagnosis/HQI/PQRI: Incomplete , Threatened , Ectopic , Intrauterine , Early - Diagnoses Provider Diagnoses: First trimester bleeding, Discharge - Discharge Plan Condition: Stable Disposition: HOME Patient Education Materials: Abdominal Pain in (ED) Forms: *Work Release Referrals: Mei Olsen MD [Primary Care Provider] - David Covington MD [Medical Doctor] - 2 Days Additional Instructions: We have given you a copy of your labs and ultrasound. You should have definite follow up with Dr. Covington in 2 days. You may take Tylenol or acetaminophen for pain. Do not take ibuprofen, aspirin, motrin or aleve or naproxen. RETURN TO THE EMERGENCY DEPARTMENT FOR CHANGING OR WORSENING SYMPTOMS. The documentation as recorded by the scribe Caetta,Ernst accurately reflects the service I personally performed and the decisions made by , Jasmyn Brown MD.
== END 2017-04-28 18:50 | disposition home or self-care (01) ==
LOC: ED 13:10
DX: O20.9 Hemorrhage in early pregnancy, unspecified (principal); Z3A.01 Less than 8 weeks gestation of pregnancy; F32.9 Major depressive disorder, single episode, unspecified; F41.9 Anxiety disorder, unspecified; M41.9 Scoliosis, unspecified
CPT/HCPCS: 36415; 76817; 80053; 81003; 81015; 83605; 84702; 85025; 85610; 85730; 86140; 86850; 86900; 86901; 87086; 96360; 99282; A9270-GY

== ENCOUNTER 2017-07-15 16:54 | Emergency (ER) | payer OTHER ==
[2017-07-15 17:50] LABS: Urine Appearance Cloudy; Urine Blood Negative (Negative); Urine Color Yellow; Urine Ketones Trace (Negative); Urine Protein Negative (Negative); Urine Specific Gravity 1.027 (1.010-1.030); Urine Urobilinogen Negative (Negative)
[2017-07-15 19:01] LABS: Hematocrit 36 % (35-47); Hemoglobin 12.8 g/dl (12.0-16.0); Mean Corpuscular HGB Conc 35 g/dl (31-36); Mean Corpuscular Hemoglobin 32 pg (27-31); Mean Corpuscular Volume 90 fL (80-97); Mean Platelet Volume 9 um3 (7.4-10.4); Platelet Count 182 10^3/ul (150-450); Red Blood Count 4.07 10^6/ul (4.0-5.4); Red Cell Distribution Width 14 % (10.5-15); White Blood Count 9.6 10^3/ul (3.5-10.8)
[2017-07-15 19:09] VITALS: BP 121/68
--- NOTE | 2017-07-22 16:03 | ED ---
Maude Stevenson Thomas, scribed for rEic Anand MD on 07/15/17 at 1759 . GI/ HPI - HPI Summary HPI Summary: The patient is a [id number] 22 year old female presenting with vaginal bleeding and lower abdominal cramping that began today. The patient was wiping earlier today and noted a small amount of blood when wiping. She also reports that she noticed red liquid in the toilet when she urinated last night and did not flush the toilet. She is due on 12/04/17. She denies fever. Past medical history includes placenta previa. - History of Current Complaint Chief Complaint: EDOBProblems Time Seen by Provider: 07/15/17 17:38 Stated Complaint: 20 WKS PREG/DIZZINESS Hx Obtained From: Patient Hx Last Menstrual Period: 11/02 Onset/Duration: Started Hours Ago, Still Present Timing: Constant Current Severity: Moderate Pain Intensity: 7 Associated Signs and Symptoms: Positive: Other: - Vaginal bleeding, lower abdominal cramping; NEGATIVE: fever Alleviating Factor(s): Nothing - Allergy/Home Medications Allergies/Adverse Reactions: Allergies Allergy/AdvReac Type Severity Reaction Status Date / Time latex Allergy Hives Verified 07/15/17 18:03 COCONUT Allergy Severe THROAT Uncoded 06/05/16 18:21 CLOSES RAT FECES Allergy Severe Anaphylatic Uncoded 06/05/16 18:21 Shock, HIVES BEE STINGS Allergy Unknown Unknown Uncoded 06/05/16 18:21 Reaction Details Home Medications: Home Medications NK [No Home Medications Reported] 07/15/17 [History Confirmed 07/15/17] PMH/Surg Hx/FS Hx/Imm Hx Endocrine/Hematology History: Denies: Hx Diabetes, Hx Thyroid Disease Cardiovascular History: Denies: Hx Hypertension Respiratory History: Denies: Hx Asthma, Hx Chronic Obstructive Pulmonary Disease (COPD) GI History: Denies: Hx Ulcer History: Denies: Hx Renal Disease Musculoskeletal History: Reports: Other Musculoskeletal History - 12 DEGREES- SCOLIOSIS Sensory History: Denies: Hx Contacts or Glasses, Hx Deafness, Hx Hearing Aid Opthamlomology History: Denies: Hx Contacts or Glasses Psychiatric History: Reports: Hx Anxiety - ON MED, Hx Depression - ON MED Denies: Hx Eating Disorder - Surgical History Surgery Procedure, Year, and Place: Bilateral " breast lumps" removed by Dr. Baum Hx Anesthesia Reactions: No Infectious Disease History: No Infectious Disease History: Denies: Hx Hepatitis, Hx Human Immunodeficiency Virus (HIV), History Other Infectious Disease, Traveled Outside the [place] in Last 30 Days - Family History Known Family History: Positive: Hypertension, Other - Breast, throat, and thyroid cancers. - Social History Alcohol Use: None Hx Substance Use: No Substance Use Type: Reports: None Hx Tobacco Use: No Smoking Status (MU): Never Smoked Tobacco Review of Systems Negative: Fever, Chills Negative: Erythema - eyes Negative: Sore Throat Negative: Chest Pain Negative: Shortness Of Breath, Cough Negative: Abdominal Pain, Vomiting, Nausea Positive: other - Vaginal bleeding, lower abdominal cramping. Negative: dysuria , hematuria Negative: Myalgia, Edema Negative: Rash Neurological: Negative - dizziness All Other Systems Reviewed And Are Negative: Yes Physical Exam - Summary Physical Exam Summary: Constitutional: Well-developed, Well-nourished, Alert. (-) Distressed Skin: Warm, Dry HENT: Normocephalic; Atraumatic Eyes: Conjunctiva normal Neck: Musculoskeletal ROM normal neck. (-) JVD, (-) Stridor, (-) Tracheal deviation Cardio: Rhythm regular, rate normal, Heart sounds normal; Intact distal pulses; The pedal pulses are 2+ and symmetric. Radial pulses are 2+ and symmetric. (-) Murmur Pulmonary/Chest wall: Effort normal. (-) Respiratory distress, (-) Wheezes, (-) Rales Abd: Soft, (-) Tenderness, (-) Distension, (-) Guarding, (-) Rebound Musculoskeletal: (-) Edema Lymph: (-) Cervical adenopathy Neuro: Alert, Oriented x3 Psych: Mood and affect Normal Triage Information Reviewed: Yes Vital Signs On Initial Exam: Initial Vitals Temp Pulse Resp BP Pulse Ox 97.6 F 89 16 142/92 99 07/15/17 16:59 07/15/17 16:59 07/15/17 16:59 07/15/17 16:59 07/15/17 16:59 Vital Signs Reviewed: Yes Diagnostics - Vital Signs Vital Signs Temp Pulse Resp BP Pulse Ox 07/15/17 16:59 97.6 F 89 16 142/92 99 - Laboratory Lab Results: Lab Results 07/15/17 Range/Units 17:28 Urine Color Yellow Urine Appearance Cloudy Urine pH 6.0 (5-9) Ur Specific [place] 1.027 (1.010-1.030) Urine Protein Negative (Negative) Urine Ketones Trace A (Negative) Urine Blood Negative (Negative) Urine Nitrate Negative (Negative) Urine Bilirubin Negative (Negative) Urine Urobilinogen Negative (Negative) Ur Leukocyte Esterase Negative (Negative) Urine Glucose Negative (Negative) Result Diagrams: 07/15/17 18:53 Lab Statement: Any lab studies that have been ordered have been reviewed, and results considered in the medical decision making process. GIGU Course/Dx - Course Assessment/Plan: The patient is a [id number] 22 year old female presenting with vaginal bleeding and lower abdominal cramping that began today. Dr. Collier, [employer]UST[employer], reports there is no indication for another ultrasound today. If the CBC is normal, Dr. Collier tells me that patient should follow up with her OB tomorrow. The is not a viable gestational age at this point. BLOOD COUNTS ARE NORMAL. The patient will be discharged home with follow up tomorrow at Dr. Galdamez office. - Diagnoses Provider Diagnoses: Placenta previa, Abdominal pain affecting - Physician Notifications Discussed Care Of Patient With: Al Collier Time Discussed With Above Provider: 18:39 Instructed by Provider To: Other - Dr. Collier, [employer], reports there is no indication for another ultrasound today. If the CBC is normal, Dr. Collier tells me that patient should follow up with her OB tomorrow. The is not a viable gestational age at this point. Discharge - Discharge Plan Condition: Stable Disposition: HOME Patient Education Materials: Placenta Previa (ED), Abdominal Pain in (ED) Referrals: Desmond Watson MD [Medical Doctor] - 1 Day Additional Instructions: Follow up with Dr. Watson OBGYN, tomorrow. Return to the emergency department for any new or worsening symptoms. The documentation as recorded by the Maude vergara Thomas accurately reflects the service I personally performed and the decisions made by me, Eric Anand MD.
== END 2017-07-15 19:45 | disposition home or self-care (01) ==
LOC: ED 16:54
DX: O44.02 Complete placenta previa NOS or without hemorrhage, second trimester (principal); O46.92 Antepartum hemorrhage, unspecified, second trimester; Z3A.19 19 weeks gestation of pregnancy; R10.30 Lower abdominal pain, unspecified
CPT/HCPCS: 36415; 81003; 85027; 99282

== ENCOUNTER 2018-07-01 10:45 | Day surgery (SDC) | payer OTHER ==
[~2018-07-01 10:45] MED LIST: Buffered Lidocaine 1% SYRIN* 1 ML/SYRINGE INTRADERM ONE; Dexamethasone IV* 4 MG/ML 1 ML (4 MG) IV SLOW PU ONE; Famotidine IV* 10 MG/ML 2 ML (20 mg) IV ONE; Lactated Ringers 1000 ML Bag* 1,000 ML IV SCH
[2018-07-01] MEDS ORDERED: ceFAZolin 2 GM PREMIX in ORs 2 GM/50 ML BAG IVPB ONE (11:21)
[2018-07-01] MEDS ORDERED: Famotidine IV* 10 MG/ML 2 ML (20 mg) ONE (11:21)
[2018-07-01] MEDS ORDERED: Dexamethasone IV* 4 MG/ML 1 ML (4 MG) ONE (11:21)
[2018-07-01] MEDS ORDERED: Lidocaine 1% INJ* 10 MG/ML 30 ML SDV ONE (12:07)
[2018-07-01] MEDS ORDERED: Bupivacaine 0.5% W/EPI SDV* 30 ML VIAL ONE (12:07)
[2018-07-01] MEDS ORDERED: Midazolam* 1 MG/ML 5 ML VIAL (5 MG) ONE (12:10)
[2018-07-01] MEDS ORDERED: fentaNYL* 50 MCG/ML 5 ML VIAL (250 MCG VIAL) ONE (12:10)
[2018-07-01] MEDS ORDERED: Ketorolac INJ* 30 MG/ML 1 ML VIAL ONE (12:12)
[2018-07-01] MEDS ORDERED: Ondansetron INJ* 2 MG/ML VIAL ONE ×2 (12:12→13:46)
[2018-07-01] MEDS ORDERED: Propofol* 10 MG/ML 20 ML BTL ONE (12:12)
[2018-07-01] MEDS ORDERED: Lidocaine 2% PF * 5 ML VIAL ONE (12:12)
[2018-07-01] MEDS ORDERED: Naloxone* 0.4 MG/ML 1 ML VIAL IV PRN (12:40)
[2018-07-01] MEDS ORDERED: Scopolamine 1.5 mg* PATCH TRANSDERM PRN (12:40)
[2018-07-01] MEDS ORDERED: Ondansetron INJ* 2 MG/ML VIAL IV PRN (12:40)
[2018-07-01] MEDS ORDERED: HYDROmorphone INJ1* 1 MG/ML SYRINGE IV PRN (12:40)
[2018-07-01] MEDS ORDERED: fentaNYL* 50 MCG/ML 2 ML VIAL (100 MCG VIAL) IV PRN (12:40)
[2018-07-01] MEDS ORDERED: DiMENhydriNATE IV* 50 MG/ML VIAL IV PUSH PRN (12:40)
[2018-07-01] MEDS ORDERED: oxyCODONE/Acetamin 5/325 MG* TAB PO PRN (12:40)
--- NOTE | 2018-07-01 13:37 | OP ---
Operative Report - Blank - Operative Report Date of Operation: 07/01/18 Note: Brief Operative Note Preop Dx: Incisional hernia Postop Dx: same Procedure: open primary repair incisional hernia Anesthesia: GET Surgeon: Verona Ruffling Machine Operator: JORGE ALBERTO Palmer Fluids: 1000 ml RL EBL: < 20 ml Specimen: hernia sac Drains: none Findings: dictated
[2018-07-01] MEDS ORDERED: fentaNYL* 50 MCG/ML 2 ML VIAL (100 MCG VIAL) ONE (13:49)
[2018-07-01 15:13] VITALS: BP 132/90
--- NOTE | 2018-07-01 20:25 | OP ---
CC: Dr. Mei Olsen * DATE OF OPERATION: 07/01/18 - SDS DATE OF : [birth year] SURGEON: Jose Roberto Rhoades MD BANK RUNNER: JORGE ALBERTO Andres ANESTHESIOLOGIST: Dr. Patricia. ANESTHESIA: General. PRE-OP DIAGNOSIS: Incisional hernia. POST-OP DIAGNOSIS: Incisional hernia. OPERATIVE PROCEDURE: Open repair of incisional hernia. BLOOD LOSS: Minimal. IV FLUIDS: 1 L of crystalloid fluid given. SPECIMEN: Hernia sac. DRAINS: None. DESCRIPTION OF PROCEDURE: Ms. Cadena is identified in the preoperative area. We discussed her case when going over the details of the procedure. She was marked appropriately and the hernia was palpated in the preoperative area. Consent was signed and she was taken back to the operating room, placed on the operating table supine position. Preoperative antibiotics given, sequential devices were placed on bilateral lower extremities. General anesthesia was induced. The patient's abdomen was prepped and draped in a standard surgical fashion. A time-out was performed. I made an incision to the right side of the previous scar. This is deepened down to the skin and flaps were made cephalad. The hernia was identified and we stayed around the site, clearing away subcutaneous fat until we identified the fascia laterally and superiorly. Small flap was made inferiorly at the site of the hernia sac and we were able to clear off fascia throughout and then the hernia sac was then dressed. Attachments peeled away and we then opened up the sac with scissors. Small bowel and omentum were identified in these. These were placed back into the abdomen with ease. There were some adhesions to the sac itself and these were taken down sharply. Once the hernia was reduced and again the contents appeared intact without evidence of ischemia. We then freshened off our edges of the defect. It appeared to be about 2 cm, and then I closed it with interrupted 0 Ti-Cron sutures. We then irrigated. Hemostasis was achieved and closed the skin with 3-0 Vicryl stitches at Dusty's fascia followed by skin ulises. Sterile dressing was applied. The patient tolerated the procedure well, was awoken up in the OR, and transferred to the PACU in stable condition. [id number]/CPS #: [id number] [facility]
== END 2018-07-01 14:51 | disposition home or self-care (01) ==
LOC: OR 10:45
PROVIDERS: ATTEND Surgery
DX: K43.2 Incisional hernia without obstruction or gangrene (principal); F32.9 Major depressive disorder, single episode, unspecified; Z91.030 Bee allergy status; Z91.040 Latex allergy status
CPT/HCPCS: 81025; 88302; J0690; J1100; J1885; J2250; J2405; J2704; J3010

== ENCOUNTER 2018-09-14 13:53 | Emergency (ER) | payer OTHER ==
[2018-09-14 15:19] VITALS: BP 134/71
--- NOTE | 2018-09-14 16:13 | ED ---
Lower Extremity - HPI Summary HPI Summary: Patient is a 23-year-old female who presents to the ED with middle right toe pain. She states she kicked a tarp in her garage this afternoon, did not feel pain immediately, but upon further walking she developed worsening pain. There is a small amount of swelling noted to the area. No deformity or ecchymosis or erythema noted. Patient is endorsing 5/10 pain. She remains ambulatory. She denies any other pain or symptoms at this time. - History of Current Complaint Chief Complaint: EDExtremityLower Stated Complaint: "I THINK I BROKE MY TOE" PER PT Time Seen by Provider: 09/14/18 13:59 Hx Obtained From: Patient Hx Last Menstrual Period: 11/02 Onset of Pain: Minutes Onset/Duration: Minutes Severity Initially: Mild Severity Currently: Mild Pain Intensity: 2 Pain Scale Used: 0-10 Numeric Location: Is Discrete @ - right middle toe pain Associated Signs And Symptoms: Positive: Swelling. Negative: Redness, Bruising , Weakness, Dizziness Aggravating Factor(s): Standing, Ambulation Alleviating Factor(s): Rest Able to Bear Weight: Yes - Risk Factors Gout Risk Factors: Negative DVT Risk Factors: Negative Septic Arthritis Risk Factor: Negative - Allergies/Home Medications Allergies/Adverse Reactions: Allergies Allergy/AdvReac Type Severity Reaction Status Date / Time latex Allergy Hives Verified 09/14/18 13:54 COCONUT Allergy Severe THROAT Uncoded 09/14/18 13:54 CLOSES RAT FECES Allergy Severe Anaphylatic Uncoded 09/14/18 13:54 Shock, HIVES BEE STINGS Allergy Unknown Unknown Uncoded 09/14/18 13:54 Reaction Details PMH/Surg Hx/FS Hx/Imm Hx Previously Healthy: Yes Endocrine/Hematology History: Denies: Hx Diabetes, Hx Thyroid Disease Cardiovascular History: Denies: Hx Hypertension, Hx Pacemaker/ICD Respiratory History: Denies: Hx Asthma, Hx Chronic Obstructive Pulmonary Disease (COPD) GI History: Denies: Hx Ulcer History: Denies: Hx Renal Disease Musculoskeletal History: Reports: Other Musculoskeletal History - 12 DEGREES- SCOLIOSIS Sensory History: Denies: Hx Contacts or Glasses, Hx Deafness, Hx Hearing Aid Opthamlomology History: Denies: Hx Contacts or Glasses Neurological History: Denies: Other Neuro Impairments/Disorders Psychiatric History: Reports: Hx Anxiety - hx of-no medication for at this time , Hx Depression - hx of-no medication for at this time Denies: Hx Eating Disorder - Surgical History Surgery Procedure, Year, and Place: Bilateral " breast lumps" removed by Dr. Baum. LEFT THIGH- REMOVAL OF INFECTION. Hx Anesthesia Reactions: No - Immunization History Hx Pertussis Vaccination: No Immunizations Up to Date: Yes Infectious Disease History: No Infectious Disease History: Denies: Hx Hepatitis, Hx Human Immunodeficiency Virus (HIV), History Other Infectious Disease, Traveled Outside the [place] in Last 30 Days - Family History Known Family History: Positive: Hypertension, Other - Breast, throat, and thyroid cancers. - Social History Occupation: Employed Full-time Lives: With Family Alcohol Use: None Hx Substance Use: No Substance Use Type: Reports: None Hx Tobacco Use: No Smoking Status (MU): Never Smoked Tobacco Have You Smoked in the Last Year: No Review of Systems Constitutional: Negative Negative: Fever, Chills, Fatigue, Skin Diaphoresis Negative: Palpitations, Chest Pain Negative: Shortness Of Breath, Cough Genitourinary: Negative Positive: no symptoms reported, see HPI Positive: Arthralgia - right middle toe pain Positive: Other - swelling. Negative: Rash, Bruising Neurological: Negative All Other Systems Reviewed And Are Negative: Yes Physical Exam Triage Information Reviewed: Yes Vital Signs On Initial Exam: Initial Vitals Temp Pulse Resp BP Pulse Ox 98.0 F 82 18 138/104 97 09/14/18 13:54 09/14/18 13:54 09/14/18 13:54 09/14/18 13:54 09/14/18 13:54 Vital Signs Reviewed: Yes Appearance: Positive: Well-Appearing, Well-Nourished Skin: Positive: Warm, Skin Color Reflects Adequate Perfusion Head/Face: Positive: Normal Head/Face Inspection Eyes: Positive: EOMI, Conjunctiva Clear Neck: Positive: Supple, No Lymphadenopathy Respiratory/Lung Sounds: Positive: Clear to Auscultation, Breath Sounds Present Cardiovascular: Positive: RRR, Pulses are Symmetrical in both Upper and Lower Extremities Musculoskeletal: Positive: Pain @ - right middle toe pain Neurological: Positive: Alert, Oriented to Person Place, Time, Speech Normal Psychiatric: Positive: Affect/Mood Appropriate Diagnostics - Vital Signs Vital Signs Temp Pulse Resp BP Pulse Ox 09/14/18 15:15 98.4 F 84 18 134/71 100 09/14/18 13:54 98.0 F 82 18 138/104 97 - Laboratory Lab Statement: Any lab studies that have been ordered have been reviewed, and results considered in the medical decision making process. Lower Extremity Course/Dx - Course Course Of Treatment: Treatment course treatment, the patient is evaluated for right middle toe pain and swelling without ecchymosis or erythema. X-ray of the toe obtained which shows a displaced intra-articular fracture. Arnav taped the second and third toe together. Patient remains ambulatory and voices no concerns at this time. Follow-up with orthopedics is given. - Diagnoses Provider Diagnoses: Toe fracture Discharge - Sign-Out/Discharge Documenting (check all that apply): Patient Departure Patient Received Moderate/Deep Sedation with Procedure: No - Discharge Plan Condition: Critical Disposition: HOME Patient Education Materials: Toe Fracture (ED) Referrals: Juvenal Arceo MD [Medical Doctor] - Miranda Maldonado NP [Primary Care Provider] - Additional Instructions: Follow-up with orthopedics Keep the area arnav taped Ibuprofen 600 mg 3 times daily - Billing Disposition and Condition Condition: CRITICAL Disposition: Home
== END 2018-09-14 15:15 | disposition home or self-care (01) ==
LOC: ED 13:53
DX: S92.511A Displaced fracture of proximal phalanx of right lesser toe(s), initial encounter for closed fracture (principal); W22.8XXA Striking against or struck by other objects, initial encounter; M41.9 Scoliosis, unspecified; F41.9 Anxiety disorder, unspecified; F32.9 Major depressive disorder, single episode, unspecified; Z91.040 Latex allergy status
CPT/HCPCS: 99282

== ENCOUNTER 2019-03-28 12:41 | Emergency (ER) | payer OTHER ==
[2019-03-28] MEDS ORDERED: traMADol TAB* 50 MG PO ONE (14:49)
--- NOTE | 2019-03-28 15:34 | ED ---
Complex/Multi-Sys Presentation - HPI Summary HPI Summary: The pt is a 23 yr old female presenting to [facility] c/o dental pain beginning several days [employer]. She states that she broke her left upper 2nd molar tooth several months ago but it only started hurting recently. The pain has readiated to her lower 2nd molar tooth on the left side, and radiates up to her jaw and neck as well. She mentions that she also gets a bump or abscess near the broken tooth occasionally. She rates her current pain severity a 10/10. The dental pain is aggravated by loud noises or bright lights. No alleviating factors noted. She also denies any fever. - History Of Current Complaint Chief Complaint: EDDentalPain Time Seen by Provider: 03/28/19 14:36 Hx Obtained From: Patient Onset/Duration: Sudden Onset, Lasting Days, Still Present Timing: Days Severity Currently: Severe Severity Initially: Severe Location: Pain At: - left mouth Aggravating Factor(s): loud noises, bright lights Alleviating Factor(s): nothing Associated Signs And Symptoms: Positive: Other - pos - dental pain. Negative: Fever - Allergies/Home Medications Allergies/Adverse Reactions: Allergies Allergy/AdvReac Type Severity Reaction Status Date / Time bee venom protein (honey bee) Allergy Unknown Verified 03/28/19 12:48 Reaction Details coconut Allergy Swelling Verified 03/28/19 12:48 Of Face,Lips,& Throat latex Allergy Hives Verified 09/14/18 13:54 RAT FECES Allergy Severe Anaphylatic Uncoded 09/14/18 13:54 Shock, HIVES Home Medications: Home Medications FLUoxetine* [PROzac*] 20 mg PO DAILY 03/28/19 [History Confirmed 03/28/19] busPIRone TAB* [Buspar TAB *] 15 mg PO DAILY 03/28/19 [History Confirmed ] clonazePAM [Clonazepam] 1 mg PO DAILY PRN 03/28/19 [History Confirmed 03/28/19] PMH/Surg Hx/FS Hx/Imm Hx Endocrine/Hematology History: Denies: Hx Diabetes, Hx Thyroid Disease Cardiovascular History: Denies: Hx Hypertension, Hx Pacemaker/ICD Respiratory History: Denies: Hx Asthma, Hx Chronic Obstructive Pulmonary Disease (COPD) GI History: Denies: Hx Ulcer History: Denies: Hx Renal Disease Musculoskeletal History: Reports: Other Musculoskeletal History - 12 DEGREES- SCOLIOSIS Sensory History: Denies: Hx Contacts or Glasses Opthamlomology History: Denies: Hx Contacts or Glasses Neurological History: Denies: Other Neuro Impairments/Disorders Psychiatric History: Reports: Hx Anxiety - hx of-no medication for at this time , Hx Depression - hx of-no medication for at this time Denies: Hx Eating Disorder - Surgical History Surgery Procedure, Year, and Place: Bilateral " breast lumps" removed by Dr. Baum. LEFT THIGH- REMOVAL OF INFECTION. Hx Anesthesia Reactions: No Infectious Disease History: No Infectious Disease History: Denies: Hx Hepatitis, Hx Human Immunodeficiency Virus (HIV), History Other Infectious Disease, Traveled Outside the [place] in Last 30 Days - Family History Known Family History: Positive: Hypertension, Other - Breast, throat, and thyroid cancers. - Social History Alcohol Use: None Hx Substance Use: No Substance Use Type: Reports: None Hx Tobacco Use: No Smoking Status (MU): Never Smoked Tobacco Have You Smoked in the Last Year: No Review of Systems Negative: Fever ENT: Other - pos - dental pain All Other Systems Reviewed And Are Negative: Yes Physical Exam - Summary Physical Exam Summary: General: Well appearing, no distress HEENT: PERRL, broken upper left 2nd molar. Tenderness at the lower left 2nd molar, no periapical abscess, or trismus Cardiovascular: Skin is well perfused Pulmonary: No respiratory distress, no tachypnea Abdomen: Non-distended Skin: Warm, pink, dry MSK: No edema Psych: Normal affect Neuro: A&Ox3 Triage Information Reviewed: Yes Vital Signs On Initial Exam: Initial Vitals Temp Pulse Resp BP Pulse Ox 97.6 F 76 16 136/87 97 03/28/19 12:45 03/28/19 12:45 03/28/19 12:45 03/28/19 12:45 03/28/19 12:45 Vital Signs Reviewed: Yes Procedures - Sedation Patient Received Moderate/Deep Sedation with Procedure: No Diagnostics - Vital Signs Vital Signs Temp Pulse Resp BP Pulse Ox 03/28/19 12:45 97.6 F 76 16 136/87 97 - Laboratory Lab Statement: Any lab studies that have been ordered have been reviewed, and results considered in the medical decision making process. Complex Multi-Symp Course/Dx Course Of Treatment: 23-year-old female presents with dental pain. Physical exam with broken upper second L molar as well as some pain near the lower left second molar. No periapical abscess. No trismus. Patient sent home on penicillin and pain control. Is planning on following up with a dentist. - Diagnoses Provider Diagnoses: Pain, dental Discharge ED - Sign-Out/Discharge Documenting (check all that apply): Patient Departure - discharge - Discharge Plan Condition: Stable Disposition: HOME Prescriptions: Penicillin VK 500 MG TAB(NF) [Penicillin VK 500 mg Tab] 500 mg PO QID 7 Days # 28 tab traMADol TAB* [Ultram*] 50 mg PO Q6HR PRN 3 Days #12 tab MDD 4 PRN Reason: Pain - Severe Patient Education Materials: Toothache (ED) Referrals: Miranda Maldonado NP [Primary Care Provider] - 3 Days Additional Instructions: Please follow up with your dentist. Take penicillin for 7 days, Tramadol for pain. Return for worsening pain, fevers, trouble opening your mouth or if you are concerned. It was a pleasure taking care of you today. - Billing Disposition and Condition Condition: STABLE Disposition: Home - Attestation Statements Document Initiated by Sofia: Yes Documenting Scribe: Shashi Lozada Provider For Whom Sofia is Documenting (Include Credential): Debi Lew MD Scribe Attestation: I, Shashi Lozada, scribed for Debi Lew MD on 03/28/19 at 1845. Scribe Documentation Reviewed: Yes Provider Attestation: The documentation as recorded by the Shashi vergara accurately reflects the service I personally performed and the decisions made by , Debi Lew MD Status of Scribgalileo Document: Viewed
[2019-03-28 15:41] VITALS: BP 120/72
== END 2019-03-28 15:40 | disposition home or self-care (01) ==
LOC: ED 12:41
DX: K08.89 Other specified disorders of teeth and supporting structures (principal); K03.81 Cracked tooth; Z91.030 Bee allergy status; Z91.040 Latex allergy status; Z91.018 Allergy to other foods; Z91.09 Other allergy status, other than to drugs and biological substances
CPT/HCPCS: 99282; A9270-GY

== ENCOUNTER 2019-07-01 04:10 | Emergency (ER) | payer OTHER ==
--- NOTE | 2019-07-01 04:35 | ED ---
Upper Extremity Pain - HPI Summary HPI Summary: This pt is a 24 Y/O F presenting to [facility] with a CC of L shoulder pain that began at 2300 when the pain started and was rated a 10/10 in severity. She states that she used lidocaine cream which usually provides relief but states no alleviation. She states that there is associated tingling through her arm and into her extremities. She states that she can move it without any aggravating factors. She states that the pain radiates into her L shoulder blade. She denies any fevers, chills, headaches, N/V, and neck pain. She states that she has no aggravating or alleviating factors. She has a PMHx of spondylosis and scoliosis. - History of Current Complaint Chief Complaint: EDExtremityUpper Stated Complaint: ARM PAIN PER PT Time Seen by Provider: 07/01/19 04:24 Hx Obtained From: Patient Hx Last Menstrual Period: 11/02 Mechanism Of Injury: Unknown Onset/Duration: Started Hours Ago - 6, Still Present Timing: Constant, Lasting Hours - 6 Severity Initially: Severe Severity Currently: Severe Pain Location: Arm - L Character: Aching Alleviating Factor(s): Nothing Associated Signs & Symptoms: Positive: Negative - chills, headaches, Numbness/ Tingling - L extremities. Negative: Fever, Neck Pain, Nausea, Vomiting - Allergies/Home Medications Allergies/Adverse Reactions: Allergies Allergy/AdvReac Type Severity Reaction Status Date / Time bee venom protein (honey bee) Allergy Unknown Verified 07/01/19 04:23 Reaction Details coconut Allergy Swelling Verified 07/01/19 04:23 Of Face,Lips,& Throat latex Allergy Hives Verified 07/01/19 04:23 RAT FECES Allergy Severe Anaphylatic Uncoded 09/14/18 13:54 Shock, HIVES PMH/Surg Hx/FS Hx/Imm Hx Previously Healthy: Yes Endocrine/Hematology History: Denies: Hx Diabetes, Hx Thyroid Disease Cardiovascular History: Denies: Hx Hypertension, Hx Pacemaker/ICD Respiratory History: Denies: Hx Asthma, Hx Chronic Obstructive Pulmonary Disease (COPD) GI History: Denies: Hx Ulcer History: Denies: Hx Renal Disease Musculoskeletal History: Reports: Other Musculoskeletal History - 12 DEGREES- SCOLIOSIS Sensory History: Denies: Hx Contacts or Glasses Opthamlomology History: Denies: Hx Contacts or Glasses Neurological History: Denies: Other Neuro Impairments/Disorders Psychiatric History: Reports: Hx Anxiety - hx of-no medication for at this time , Hx Depression - hx of-no medication for at this time Denies: Hx Eating Disorder - Surgical History Surgery Procedure, Year, and Place: Bilateral " breast lumps" removed by Dr. Baum. LEFT THIGH- REMOVAL OF INFECTION. Hx Anesthesia Reactions: No Infectious Disease History: No Infectious Disease History: Denies: Hx Hepatitis, Hx Human Immunodeficiency Virus (HIV), History Other Infectious Disease, Traveled Outside the [place] in Last 30 Days - Family History Known Family History: Positive: Hypertension, Other - Breast, throat, and thyroid cancers. - Social History Alcohol Use: None Hx Substance Use: No Substance Use Type: Reports: Marijuana Hx Tobacco Use: No Smoking Status (MU): Never Smoked Tobacco Have You Smoked in the Last Year: No Review of Systems Negative: Fever, Chills Negative: Vomiting, Nausea Musculoskeletal: Negative - neck pain , Other - POSITVE: L arm pain Negative: Headache All Other Systems Reviewed And Are Negative: Yes Physical Exam - Summary Physical Exam Summary: Appearance: Well-appearing, Well-nourished, lying in bed comfortable Skin: Warm, dry, no obvious rash Eyes: sclera anicteric, no conjunctival pallor ENT: mucous membranes moist Neck: deferred Respiratory: No signs of respiratory distress Cardiovascular: Appears well perfused, pulses are nml Abdomen: deferred Musculoskeletal: Moving all 4 extremities without obvious discomfort, Full ROM of neck without cervical tenderness, tenderness in the upper L trap, no focal deficits along the forearm, Full ROM about her wrist. Neurological: Awake and alert, mentation is normal, speech is fluent and appropriate Psychiatric: affect is normal, does not appear anxious or depressed Triage Information Reviewed: Yes Vital Signs On Initial Exam: Initial Vitals Temp Pulse Resp BP Pulse Ox 97.2 F 82 20 132/106 99 07/01/19 04:10 07/01/19 04:10 07/01/19 04:10 07/01/19 04:10 07/01/19 04:10 Vital Signs Reviewed: Yes Procedures - Sedation Patient Received Moderate/Deep Sedation with Procedure: No Diagnostics - Vital Signs Vital Signs Temp Pulse Resp BP Pulse Ox 07/01/19 04:10 97.2 F 82 20 132/106 99 - Laboratory Lab Statement: Any lab studies that have been ordered have been reviewed, and results considered in the medical decision making process. Course/Dx - Course Course Of Treatment: This pt is a 24 Y/O F presenting to [facility] with a CC of L shoulder pain that began at 2300 when the pain started and was rated a 10/10 in severity. She states that she used lidocaine cream which usually provides relief but states no alleviation. She states that there is associated tingling through her arm and into her extremities. She states that she can move it without any aggravating factors. Her PE found the following: Full ROM of neck without cervical tenderness, tenderness in the upper L trap, no focal deficits along the forearm, Full ROM about her wrist. She will be discharged home with a Dx of cervical radiculopathy - Diagnoses Provider Diagnoses: Cervical radiculopathy Discharge ED - Sign-Out/Discharge Documenting (check all that apply): Patient Departure - discharge - Discharge Plan Condition: Stable Disposition: HOME Patient Education Materials: Cervical Radiculopathy (ED) Referrals: Miranda Maldonado NP [Primary Care Provider] - Ha Boyle MD [Medical Doctor] - 1 Week (if not improving) Additional Instructions: FOLLOW UP WITH YOUR PRIMARY CARE PROVIDER IN 1-[address] ENDER MD , AND RETURN TO THE EMERGENCY DEPARTMENT FOR ANY NEW OR WORSENING SYMPTOMS. - Billing Disposition and Condition Condition: STABLE Disposition: Home - Attestation Statements Document Initiated by Sofia: Yes Documenting Scribe: Ramos Russo Provider For Whom Sofia is Documenting (Include Credential): Alfredo Matias MD Scribe Attestation: Ramos Stevenson, sudhaed for Alfredo Matias MD on 07/02/19 at 0409. Scribe Documentation Reviewed: Yes Provider Attestation: The documentation as recorded by the Ramos vergara accurately reflects the service I personally performed and the decisions made by me, Alfredo Matias MD Status of Scribe Document: Viewed
[2019-07-01 04:47] VITALS: BP 0/0
== END 2019-07-01 04:46 | disposition home or self-care (01) ==
LOC: ED 04:10
DX: M54.12 Radiculopathy, cervical region (principal); F41.9 Anxiety disorder, unspecified; F32.9 Major depressive disorder, single episode, unspecified; Z91.040 Latex allergy status
CPT/HCPCS: 99282

== ENCOUNTER 2021-10-11 11:40 | Inpatient (IN) ==
[2021-10-11] MEDS ORDERED: NS 0.9% 1000 ml BAG 1,000 ML IV ONE (12:06)
[2021-10-11] MEDS ORDERED: Morphine 4 MG/ML VIAL (1 ml) IV ONE (12:06)
[2021-10-11] MEDS ORDERED: Ondansetron 4 mg VIAL 2 MG/ML 2 ml VIAL IV ONE ×2 (12:06→20:48)
[2021-10-11] MEDS ORDERED: Mineral Oil ENEMA 118 ML/BOTTLE BOTTLE PR ONE (12:07)
[2021-10-11 12:26] LABS: Hematocrit 38 % (35-47); Hemoglobin 12.6 g/dL (12.0-16.0); Mean Corpuscular HGB Conc 34 g/dL (31-36); Mean Corpuscular Hemoglobin 31 pg (27-31); Mean Corpuscular Volume 94 fL (80-97); Mean Platelet Volume 8.8 fL (7.4-10.4); Platelet Count 236 10^3/uL (150-450); Red Blood Count 4.01 10^6 /uL (3.70-4.87); Red Cell Distribution Width 15 % (10-15); White Blood Count 6.8 10^3/uL (3.5-10.8)
[2021-10-11 13:11] LABS: Calcium 9.5 mg/dL (8.6-10.3); eGFR CKD-EPI 77.3 (>60)
[2021-10-11] MEDS ORDERED: oxyCODONE/Acetamin 5/325 mg TAB PO ONE (16:23)
[2021-10-11] MEDS ORDERED: ceFOXitin 2 GM IVPREMIX 2 GM/50 ML BAG IVPB ONE (19:45)
[2021-10-11] MEDS ORDERED: DOXYcycline 100 MG in NS 0.9% 250 ml 250 ML IVPB ONE (19:45)
[2021-10-11] MEDS: Ondansetron 4 mg VIAL 2 MG/ML 2 ml VIAL IV PRN (20:52)
[2021-10-11] MEDS ORDERED: HYDROmorphone 0.5 MG/0.5 ML SYRINGE IV SLOW PU PRN (21:42)
[2021-10-12] MEDS: ceFOXitin 2 GM IVPREMIX 2 GM/50 ML BAG IVPB SCH ×4 (01:57→19:53)
[2021-10-12] MEDS: oxyCODONE/Acetamin 5/325 mg TAB PO PRN ×3 (02:22→16:05)
[2021-10-12] MEDS: Magnesium CITRATE LIQ 300 ML BTL PO ONE ×2 (02:24→02:58)
[2021-10-12] MEDS: Ondansetron 4 mg VIAL 2 MG/ML 2 ml VIAL IV PRN ×3 (02:54→18:44)
[2021-10-12] MEDS ORDERED: Magnesium Hydroxide LIQ 30 ML UDC PO PRN (07:21)
[2021-10-12] MEDS ORDERED: Magnesium Hydroxide LIQ 30 ML UDC PO SCH (08:00)
[2021-10-12 09:04] LABS: Albumin 3.9 g/dL (3.2-5.2); Albumin/Globulin Ratio 1.4 (1-3); Calcium 9.2 mg/dL (8.6-10.3); Globulin 2.7 g/dL (2-4); Potassium 4.1 mmol/L (3.5-5.0); Total Bilirubin 0.6 mg/dL (0.2-1.0); Total Protein 6.6 g/dL (6.4-8.9); eGFR CKD-EPI 70.6 (>60)
[2021-10-12] MEDS ORDERED: Enoxaparin 40 MG/0.4 ML SYR SUBCUT SCH (16:00)
[2021-10-12] MEDS: Cholecalciferol (VIT D3) 1,000 unit TAB PO SCH (16:35)
[2021-10-13] MEDS: oxyCODONE/Acetamin 5/325 mg TAB PO PRN ×2 (03:08→09:51)
[2021-10-13] MEDS: Cholecalciferol (VIT D3) 1,000 unit TAB PO SCH (09:51)
[2021-10-13] MEDS: Ondansetron 4 mg VIAL 2 MG/ML 2 ml VIAL IV PRN (10:48)
[2021-10-13 11:34] VITALS: BP 125/87
[2021-10-13 12:07] LABS: HIV 4th Generation Nonreactive (Nonreactive)
[2021-10-16 12:39] LABS: Chlamydia trachomatis NAA Positive (Negative); Neisseria gonorrhoeae (GC) NAA Negative (Negative)
== END 2021-10-13 12:15 | disposition home or self-care (01) | DRG 531 ==
LOC: ED 11:40 → SSU 20:38
PROVIDERS: ADMIT Obstetrics & Gynecology; ATTEND Obstetrics & Gynecology